=== PATIENT | female | born 1945 | race Caucasian/White ===

== ENCOUNTER 2016-04-18 08:46 | Outpatient (CLI) ==
[2016-01-22 06:37] VITALS: BMI 31.2
--- NOTE | 2016-04-18 10:34 | MAMMO ---
EXAM: Digital screening mammogram HISTORY: Screening COMPARISON: 07/14/2010 FINDINGS: Digital MLO and CC views of the right and left breast were performed. There are scatter ed fibroglandular densities. There is no evidence for mass, asymmetry, distortion, or suspicious ca lcifications in either breast. IMPRESSION: 1. No evidence of malignancy in the right or left breast. 2. Annual screening mammogram is recommended in one year. BIRADS category 1, negative examination
== END 2016-04-18 08:47 ==
LOC: RAD 08:46
PROVIDERS: ATTEND Family Medicine
DX: Z12.31 Encounter for screening mammogram for malignant neoplasm of breast (principal)

== ENCOUNTER 2017-03-27 08:16 | Emergency (ER) ==
[2017-03-27 08:17] VITALS: BMI 31.2
[2017-03-27 08:20] VITALS: BP 128/76; TEMP 99.8
[2017-03-27] MEDS ORDERED: DUONEB NEB STA (08:29)
[2017-03-27] MEDS ORDERED: PREDNISONE PO STA (08:30)
--- NOTE | 2017-03-27 09:18 | DI ---
EXAM: Two views of the chest. History: Cough. Comparison: Chest radiograph 01/01/2016 Findings: Heart size is normal. No focal consolidation. No appreciable pleural fluid and no pneumo thorax. No acute osseous abnormalities. Atherosclerotic vascular calcifications. Impression: No acute cardiopulmonary process
--- NOTE | 2017-03-27 09:24 | ED.PDOC ---
General ED Provider: Dr. JARVIS WAYNE Chief Complaint: Respiratory Complaint Stated Complaint: cough, flu like symp Time Seen by Physician: 08:17 Mode of Arrival: Walk-In Information Source: Patient Exam Limitations: No limitations Primary Care Provider: KYRIE HECK Nursing and Triage Documentation Reviewed and Agree: Yes Reviewed sepsis parameters & appropriate labs ordered?: Yes System Inflammatory Response Syndrome: Not Applicable Sepsis Protocol: For patient's 13 years and over: Temp is 96.8 and below OR 101 and greater Pulse >90 BPM Resp >20/minute Acutely Altered Mental Status Are patient's symptoms suggestive of a new infection, such as: -Pneumonia -Skin, Soft Tissue -Endocarditis -UTI -Bone, Joint Infection -Implantable Device -Acute Abdominal Infection -Wound Infection -Meningitis -Blood Stream Catheter Infection -Unknown System Inflammatory Response Syndrome: Not Applicable Respiratory Complaint Exam - Respiratory Complaint/Exam Onset/Duration: 1 day Symptoms Are: Still present Timing: Intermittent Initial Severity: Mild Current Severity: Mild Location: Nose, Throat, Chest Character: Reports: Non-productive cough, Dry cough Aggravating: Reports: URI Alleviating: Reports: Bronchodilators Associated Signs and Symptoms: Reports: URI, Nasal congestion, Sore throat Related History: Reports: Similar episode History of Healthcare-Acquired Pneumonia: No Related Surgical History: Reports: None Pulmonary Embolism Risk Factors: None Cardiac Risk Factors: Reports: Hypertension, CHF Pseudomonas Risk Factors: Reports: None Tuberculosis Risk Factors: Reports: None Status Asthmaticus Risk Factors: Reports: None Home Oxygen Use: No Recent Stress Test: No Recent Echo/LV Function: No Current Antibiotic Use: No Current Asthma Medication Use: No Respiratory Distress: None Inadequate Respiratory Effort: No Dysphagia Present: No Stridor Present: No JVD Present: No Accessory Muscle Use: No Retractions: Not Present Diminished Breath Sounds: No Sinus Tenderness: None Grunting Respirations: No Kussmaul Respirations: No Differential Diagnoses: Pneumonia, Bronchitis Review of Systems - Review Of Systems Constitutional: Reports: Chills, Malaise Eyes: Reports: No symptoms Ears, Nose, Mouth, Throat: Reports: Throat pain Respiratory: Reports: Cough Cardiac: Reports: No symptoms GI: Reports: No symptoms : Reports: No symptoms Musculoskeletal: Reports: No symptoms Skin: Reports: No symptoms Neurological: Reports: No symptoms Endocrine: Reports: No symptoms Hematologic/Lymphatic: Reports: No symptoms All Other Systems: Reviewed and Negative Past Medical History - Past Medical History Previously Healthy: Yes Endocrine: Reports: None Cardiovascular: Reports: Hypertension, CHF Respiratory: Reports: None Hematological: Reports: None Gastrointestinal: Reports: None Genitourinary: Reports: None Neuro/Psych: Reports: None Musculoskeletal: Reports: None Cancer: Reports: None Last Menstrual Period: n/a - Surgical History General Surgical History: Reports: - Family History Family History: Reports: Unknown - Social History Smoking Status: Never smoker Hx Substance Use: No Alcohol Screening: Occasionally Physical Exam - Physical Exam Appearance: Ill-appearing Ill-appearing: Mild Eyes: SURJIT, EOMI, Conjunctiva clear ENT: Erythema Respiratory: Rhonchi Cardiovascular: RRR, Pulses normal, No rub, No murmur GI/: Soft, Nontender, No masses, Bowel sounds normal, No Organomegaly Musculoskeletal: Normal strength, ROM intact, No edema, No calf tenderness Skin: Warm, Dry, Normal color Neurological: Sensation intact, Motor intact, Reflexes intact, Cranial nerves intact, Alert, Oriented Psychiatric: Affect appropriate, Mood appropriate Interpretation - Radiology Interpretation Radiology Interpretation By: Radiologist Radiology Results: No acute changes Critical Care Note - Critical Care Note Total Time (mins): 0 Course - Course Orders, Labs, Meds: Lab Review 03/27/17 08:34 Influenza A (Rapid) Positive by naat H Influenza B (Rapid) Negative by naat Orders Category Date Time Status NEBULIZER TREATMENT Stat CARDIO 03/27/17 08:30 Ordered MOLECULAR FLU A/B Stat LAB 03/27/17 08:29 Uncollected MOLECULAR GROUP A STREP Stat LAB 03/27/17 08:29 Uncollected Ipratropium/Albuterol Neb [Duoneb] MEDS 03/27/17 08:29 Stat 1 vial NEB ONCE STA Prednisone MEDS 03/27/17 08:30 Stat 40 mg PO ONCE STA CHEST, 2 VIEWS PA & LAT Stat RADS 03/27/17 08:28 Ordered Medications Discontinued Medications Generic Name Dose Route Start Last Admin Trade Name Freq PRN Reason Stop Dose Admin Albuterol/Ipratropium 1 vial 03/27/17 08:29 03/27/17 08:42 Duoneb NEB 03/27/17 08:30 1 vial ONCE STA Administration Prednisone 40 mg 03/27/17 08:30 03/27/17 08:53 Prednisone PO 03/27/17 08:31 40 mg ONCE STA Administration Vital Signs: Temp Pulse Resp BP Pulse Ox 03/27/17 08:17 99.8 F H 86 16 128/76 95 Departure - Departure Time of Disposition: 09:24 Disposition: HOME SELF-CARE Discharge Problem: Influenza Instructions: Influenza (ED) Condition: Good Pt referred to PMD for follow-up: Yes Additional Instructions: Please call your Family Physician as soon as possible to schedule a follow-up appointment. Allergies/Adverse Reactions: Allergies doxycycline Adverse Reaction (Verified 03/27/17 08:20) Nausea Ajbobuq-Oix-Dco Reductase Inhibitor Adverse Reaction (Verified 03/27/17 08:20) WEAKNESS, LEG TINGLING Sulfa (Sulfonamide Antibiotics) Adverse Reaction (Verified 03/27/17 08:20) Rash Home Medications: Ambulatory Orders Furosemide [Furosemide] 20 mg PO DAILY 01/13/14 Losartan Potassium [Losartan Potassium] 50 mg PO BS 01/13/14 Olopatadine HCl [Pataday] 2.5 drop EACHEYE DAILY PRN 01/13/14 Aspirin [Aspirin EC] 81 mg PO DAILYWM 01/22/16 Calcium Carbonate/Vitamin D3 [Calcium 600 + Vit D 400 Tablet] 1 tab PO BID 01/21 Hydrocodone Bit/Acetaminophen [[place] 7.5-325] 1 tab PO Q4H PRN 01/22/16 Amoxicillin 500 mg PO Q8HR #21 tablet 03/27/17 Hydrocodone/Chlorphen Polis [Tussionex] 5 ml PO Q12HR 5 Days disp.syrin Disposition Discussed With: Patient
== END 2017-03-27 09:36 | disposition home or self-care (01) ==
LOC: ED 08:16
DX: J09.X2 Influenza due to identified novel influenza A virus with other respiratory manifestations (principal)
CPT/HCPCS: 87502; 87651; 94640; 99283

== ENCOUNTER 2017-05-07 08:36 | Outpatient (CLI) ==
[2016-01-22 06:37] VITALS: BMI 31.2
--- NOTE | 2017-05-07 10:41 | DEXA ---
EXAM: Bone densitometry. History: Menopause Findings: Evaluation of the lumbar spine reveals a total bone mineral density of 1.302 grams per centimeter squ ared with T-score of 1.0. Evaluation of the left hip reveals a total bone mineral density of 1.004 grams per centimeter squared with T-score of 0.0. Evaluation of the right hip reveals a total bone mineral density of 1.026 grams per centimeter square d with T-score of 0.1 Impression: Normal bone mineral density of the lumbar spine and left hip.
--- NOTE | 2017-05-08 11:44 | MAMMO ---
EXAM: Bilateral digital screening mammogram (2-D and 3-D) History: Screening Comparison: Bilateral mammogram 04/18/2016 Findings: MLO and CC views of bilateral breasts demonstrate scattered fibroglandular breast parenchy ma. CAD was reviewed by the radiologist. Tomosynthesis was performed. Stable bilateral breast calc ifications. Stable benign appearing bilateral nodular densities. There are no developing masses, no suspicious microcalcifications and no architectural distortions Impression: Benign stable mammogram. Recommend followup routine screening mammography in 1 year. BIRADS 2
== END 2017-05-07 08:37 | disposition home or self-care (01) ==
LOC: RAD 08:36
PROVIDERS: ATTEND Family Medicine
DX: Z12.31 Encounter for screening mammogram for malignant neoplasm of breast (principal); Z78.0 Asymptomatic menopausal state
CPT/HCPCS: 77067

== ENCOUNTER 2017-07-23 08:27 | Outpatient (CLI) ==
--- NOTE | 2017-07-23 09:49 | DI ---
EXAM: Three views of the right knee. History: Right knee pain. Findings: No acute fracture or dislocation. Chondrocalcinosis. Mild to moderate tricompartmental j oint space narrowing with small osteophytes and most significant involving the patellofemoral compart ment. Anterior subcutaneous edema. Mild patellar enthesiopathy Impression: 1. No acute osseous abnormality. 2. 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 3. Anterior subcutaneous edema
--- NOTE | 2017-07-23 09:50 | DI ---
Exam: Left knee three-view History: Knee pain Findings / impression: No acute bony or articular abnormality. Mild tricompartmental osteoarthritic change manifest by marginal osteophyte ptosis probably most prominent patellofemoral. No obvious drake int effusion.
== END 2017-07-23 08:28 | disposition home or self-care (01) ==
LOC: RAD 08:27
PROVIDERS: ATTEND Family Medicine
DX: M25.561 Pain in right knee (principal); M25.562 Pain in left knee

== ENCOUNTER 2018-05-12 09:21 | Outpatient (CLI) ==
--- NOTE | 2018-05-12 11:59 | MAMMO ---
EXAM: Bilateral digital screening mammogram (2-D and 3-D) History: Screening Comparison: Bilateral mammogram 05/07/2017 Findings: MLO and CC views of bilateral breasts demonstrate scattered fibroglandular breast parenchy ma. CAD was reviewed by the radiologist. Tomosynthesis was performed. Stable benign bilateral feliz st calcifications. There are no dominant masses, no suspicious microcalcifications and no architectu ral distortions Impression: Benign stable mammogram. Recommend followup routine screening mammography in 1 year. BIRADS 2, benign
== END 2018-05-12 09:22 | disposition home or self-care (01) ==
LOC: RAD 09:21
PROVIDERS: ATTEND Family Medicine
DX: Z12.31 Encounter for screening mammogram for malignant neoplasm of breast (principal)